=== PATIENT | female | born 2000 | race American Indian/Alaskan Native ===

== ENCOUNTER 2020-01-04 04:42 | Inpatient (IN) | payer MEDICAID ==
[2020-01-04] MEDS ORDERED: Lidocaine 1% 30 ML SDV ONE (05:05)
[2020-01-04] MEDS ORDERED: Tranexamic Acid 1,000 MG in Sodium Chloride 0.9% 100 ML IV PRN (05:45)
[2020-01-04] MEDS ORDERED: Measles, Mumps & Rubella Vaccine 0.5 ML SDV SUBCUT ONE (05:45)
[2020-01-04] MEDS ORDERED: Sodium Chloride 0.9% 10 ML Syringe FLUSH PRN (05:45)
[2020-01-04] MEDS ORDERED: Misoprostol 400 MCG (4 X 100 MCG TAB) RECTAL PRN (05:45)
[2020-01-04] MEDS ORDERED: Carboprost Tromethamine 250 MCG/1 ML Amp IM PRN (05:45)
[2020-01-04] MEDS ORDERED: Simethicone 80 MG Tab.Chew PO PRN (05:45)
[2020-01-04] MEDS ORDERED: Lidocaine 1% 30 ML SDV INJECT ONE (05:49)
[2020-01-04] MEDS ORDERED: Lactated Ringers 1,000 ML IV SCH (06:00)
[2020-01-04] MEDS ORDERED: Oxytocin/Normal Saline 30 UNIT/500 ML BAG IV SCH (06:00)
--- NOTE | 2020-01-04 07:38 | HP ---
CHIEF COMPLAINT: "Having a baby." HISTORY OF PRESENT ILLNESS: A 19-year-old 1, para 0, currently at 37- 1/7 weeks' gestation based on 1st trimester ultrasound at the [facility] was known to have a cervix that was already effacing at her 36+ weeks visit and reports that she felt some leakage of fluid around 4 o'clock in the morning, but was not sure that she was ruptured and was instructed to place on a dimitri-pad and call back if the pad continued to be moist. Instead, about 45 minutes later, she felt a small pop and had her 1st contraction, and had her boyfriend bring her to the hospital. She presented and ultimately was delivered by the nurse 9 minutes after feeling her 1st contraction (4 minutes after getting to the hospital). REVIEW OF SYMPTOMS: Prior to arrival; no chest pain, no shortness of breath. No preeclampsia symptoms. Had not been feeling any contractions. Did have a small amount of fluid leakage 45 minutes prior to presentation. No vaginal bleeding. movement had been good, and she denies any other specific concerns. OBSTETRICAL HISTORY: First with good care. Her blood type A positive, antibody screen negative. Rubella nonimmune. Syphilis serology nonreactive. Hepatitis B nonreactive. HIV nonreactive. Gonorrhea and chlamydia negative. TSH normal at 0.85. Hepatitis C nonreactive. Wet prep negative. One-hour glucose tolerance test of 96. Last hemoglobin 12.1, and platelets 198 on 11/02/2019, and group B Strep test was negative. Only medication during the was her vitamin. PAST MEDICAL HISTORY: Irregular periods, needle phobia, and prior urinary tract infection. SURGICAL HISTORY: None. FAMILY HISTORY: Mother is alive and well. Father is alive, but has substance use disorder. Maternal grandmother with lung cancer, diabetes, and heart disease. Maternal grandfather is unknown. Paternal grandmother has diabetes. Paternal grandfather has had diabetes and heart surgery x2. Negative family history for multiples, defects. No anesthesia problems, bleeding or clotting disorders, seizures. No cystic fibrosis. SOCIAL HISTORY: The patient lives with her boyfriend, Juan Pablo Hughes and his niece. They do have legal custody of his niece. She is working weekends at [employer] and he works at [employer]. He is reported as healthy, but his mother of severe asthma and his father had colon cancer, but is alive. This is their 1st child. Juan Pablo is a smoker. The patient herself is a former smoker. REVIEW OF SYSTEMS: Pertinent positives and negatives underneath the history of present illness. Otherwise, 10-system review is negative. PHYSICAL EXAMINATION: Note, patient is at the time of exam. She presented to the hospital and delivered precipitously with the nurse. There were no complications. I delivered the placenta and completed the perineal repair and then we were able to complete her actual admission exam. Vital Signs: Respiratory rate of 18, blood pressure 127/59, pulse of 91. She is afebrile with temp of 98.8. HEENT: Grossly unremarkable. Neck: Supple without adenopathy. Heart: Regular without murmur. Lungs: Clear to auscultation bilaterally. Abdomen: Soft, nontender. Fundus is now firm and below the umbilicus. monitoring strip for the 3 minutes that they were able to obtain prior to actual delivery, baseline heart rate of 130s. There was an acceleration noted and there was terminal decelerations. [place] was not applied and nurse palpated 3 contractions during this time. Vagina: Inspected and 2 anterior labial lacerations that did not need repair and are hemostatic. Posteriorly, there was a first-degree laceration repaired with 3-0 Vicryl in the usual fashion. Extremities: No edema, erythema, or tenderness noted. LABORATORY DATA: Hemoglobin 13.6, hematocrit 39.4, platelets 212. ASSESSMENT: 1. 1, now para 1-0-0-1. 2. Status post spontaneous vaginal delivery at 37 weeks and 1 day gestation. 3. Status post first-degree laceration repair. 4. Blood type A positive, rubella nonimmune, and group B Strep negative. 5. Former smoker. 6. Pap smear with ASCUS and positive HPV. 7. Plans on . PLAN: Anticipate normal cares and discharge home on day #2 due to early term gestation. The patient will also get her MMR booster. All of her questions have been answered. MODL /[id number] GALLO
--- NOTE | 2020-01-04 07:53 | DEL ---
DATE: 01/04/2020 PREPROCEDURE DIAGNOSES: 1. 37-1/7 weeks' intrauterine based on 1st trimester ultrasound at the [facility]. 2. 1 para 0. 3. Former smoker. 4. Blood type A positive, rubella nonimmune, group B Strep negative. 5. The patient does not feel her contractions. POSTPROCEDURE DIAGNOSES: 1. 37-1/7 weeks' intrauterine based on 1st trimester ultrasound at the [facility]. 2. 1 now para 1-0-0-1. 3. Status post spontaneous vaginal delivery, attended by nursing staff. 4. Status post first-degree laceration repair. 5. Former smoker. 6. Blood type A positive, rubella nonimmune, group B Strep negative. 7. The patient does not feel her contractions. BRIEF HISTORY: A 19-year-old female who reports that she had some leakage of fluid around 4 o'clock in the morning and put on a dimitri-pad to see if she was actually leaking or if there was some other fluid drainage. She noted her 1st contraction and hearing a pop at 4:45 a.m., immediately came to the hospital and delivered with the nurse in attendance at 4:54 a.m. Delivery details as outlined below. DETAILS OF PROCEDURE: The patient rapidly transferred to the bed and placed in dorsal lithotomy position. Nurse delivered a viable female infant in the OA position over intact perineum. Baby was dried, stimulated, bulb suctioned, and placed upon mother's abdomen. After delay of cord clamping of at least 2 minutes, the father cut the umbilical cord and then baby taken to the warmer for further evaluation. I then arrived in the room and cord blood sample was obtained. Placenta then delivered by gentle cord traction and concomitant uterine massage. Labia and vagina inspected and there were 2 anterior labial lacerations that were hemostatic and did not need repair. There was a first- degree posterior laceration, which was anesthetized with 1% lidocaine and repaired with 3-0 Vicryl running suture in the usual fashion with good cosmetic and hemostatic result. The patient tolerated all of her procedures quite well. COMPLICATIONS: None. The patient did deliver without physician in attendance. However, her precipitous delivery prohibited my being notified and arriving in time, but there were no complications with nurses performing the procedure. ESTIMATED BLOOD LOSS: Less than 200 mL. FINDINGS: Viable female infant, weighing 2950 g, 6 pounds 8 ounces, Apgars of 8 and 9, and first-degree laceration repair. DISPOSITION: Mother and baby to stay in the room to initiate . MODL /[id number]
[2020-01-04] MEDS: Ibuprofen 800 MG Tab PO PRN ×2 (09:30→15:53)
[2020-01-04] MEDS: Docusate Sodium 100 MG Cap PO PRN ×2 (09:31→21:20)
[2020-01-04] MEDS: Acetaminophen 325 MG Tab PO PRN ×3 (09:31→21:20)
[2020-01-04] MEDS: Prenatal Multivitamin with Calcium/Folic Acid/Iron Tab PO SCH (09:31)
[2020-01-04] MEDS: Ferrous Sulfate 325 MG Tab PO SCH (09:31)
[2020-01-04] MEDS: Benzocaine/Menthol 20%-0.5% Spray 56 GM Canister TOP PRN ×2 (17:38→21:19)
[2020-01-05] MEDS: Ibuprofen 800 MG Tab PO PRN ×3 (03:08→22:10)
[2020-01-05] MEDS: Acetaminophen 325 MG Tab PO PRN ×4 (03:08→22:10)
[2020-01-05] MEDS: Ferrous Sulfate 325 MG Tab PO SCH (08:52)
[2020-01-05] MEDS: Docusate Sodium 100 MG Cap PO PRN ×2 (08:52→22:10)
[2020-01-05] MEDS: Prenatal Multivitamin with Calcium/Folic Acid/Iron Tab PO SCH (08:52)
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
[2020-01-06] MEDS: Docusate Sodium 100 MG Cap PO PRN (08:43)
[2020-01-06] MEDS: Prenatal Multivitamin with Calcium/Folic Acid/Iron Tab PO SCH (08:43)
[2020-01-06] MEDS: Ferrous Sulfate 325 MG Tab PO SCH (08:44)
[2020-01-06] MEDS: Ibuprofen 800 MG Tab PO PRN (08:44)
== END 2020-01-06 11:30 | disposition home or self-care (01) | DRG 807 ==
LOC: DL.OBCHECK 04:42 → DL.OB 04:50 → OBSVTOIN 04:54 → DL.OB 04:54 → DL.MS 23:40
PROVIDERS: ADMIT Family Medicine; ATTEND Family Medicine
PROC: 10E0XZZ Delivery of Products of Conception, External Approach (ICD-10-PCS; principal; 2020-01-04)
DX: O70.0 First degree perineal laceration during delivery (principal); Z37.0 Single live birth; Z3A.37 37 weeks gestation of pregnancy; Z87.891 Personal history of nicotine dependence; Z11.59 Encounter for screening for other viral diseases
CPT/HCPCS: 36415; 59409; 85025; 90471; 90707; A9270-GY; J2001; J2590; J7120; U0002

== ENCOUNTER 2020-02-25 21:33 | Emergency (ER) | payer OTHER, MEDICAID ==
[2020-02-25 22:27] LABS: ANION GAP 14.3 mEq/L (7-13); CHLORIDE,CL 106 mmol/L (98-107); SODIUM,NA 142 mmol/L (136-145)
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
[2020-02-25] MEDS ORDERED: Acetaminophen 500 MG Tab PO ONE (23:23)
== END 2020-02-25 23:33 | disposition home or self-care (01) ==
LOC: DL.ED 21:33
DX: F07.81 Postconcussional syndrome (principal); S00.83XA Contusion of other part of head, initial encounter; V48.6XXA Car passenger injured in noncollision transport accident in traffic accident, initial encounter
CPT/HCPCS: 36415; 70450; 72125; 80053; 85025; 99284; A9270

== ENCOUNTER 2020-04-22 12:28 | Emergency (ER) | payer MEDICAID ==
--- NOTE | 2020-04-22 13:22 | EDM.PDOC ---
ED HPI GENERAL MEDICAL PROBLEM - General Chief Complaint: Lower Extremity Injury/Pain Stated Complaint: dislocated knee last night cant walk or move leg Time Seen by Provider: 04/22/20 13:13 Source of Information: Reports: Patient History Limitations: Reports: No Limitations - History of Present Illness INITIAL COMMENTS - FREE TEXT/NARRATIVE: Patient is here for left knee injury. She was jumping over the parking divider at [employer] last night when she landed with all her weight on her left leg. She felt her knee pop. She thought it was just jammed and had been walking on it since. She was walking home form the bar when she felt like her knee dislocated. She felt like it twisted in the joint then snapped back and popped. Her friends told her that they heard the pop as well. Never injured the knee before. She has been taking ibuprofen with minimal relief. She is having to move it gingerly. Occasional numbness down the lateral aspect of her lower leg with certain movements. Onset: Sudden Onset Date: 04/21/20 Location: Reports: Lower Extremity, Left Severity: Severe Improves with: Reports: Immobilization, Rest Worsens with: Reports: Movement - Related Data Allergies Allergy/AdvReac Type Severity Reaction Status Date / Time No Known Allergies Allergy Verified 01/04/20 05:32 Past Medical History - Past Health History Medical/Surgical History: Denies Medical/Surgical History Social & Family History - Family History Family Medical History: Noncontributory - Tobacco Use Tobacco Use Status *Q: Current Every Day Tobacco User Years of Tobacco use: 16 Packs/Tins Daily: 1 - Caffeine Use Caffeine Use: Reports: Coffee, Energy Drinks - Recreational Drug Use Recreational Drug Use: Yes Review of Systems - Review of Systems Review Of Systems: Comprehensive ROS is negative, except as noted in HPI. ED EXAM, GENERAL - Physical Exam Exam: See Below Exam Limited By: No Limitations General Appearance: Alert, WD/WN, No Apparent Distress Eye Exam: Bilateral Eye: Normal Inspection Ears: Normal External Exam Throat/Mouth: Normal Voice, No Airway Compromise Head: Atraumatic, Normocephalic Respiratory/Chest: No Respiratory Distress, Lungs Clear, Normal Breath Sounds, No Accessory Muscle Use Cardiovascular: Normal Peripheral Pulses, Regular Rate, Rhythm, No Edema, No Murmur GI/Abdominal: Soft, Non-Tender Extremities: Other (left knee with moderate swelling and slight bruising noted. No patellar apprehension. pain to palpation around medial and lateral joint lines as well as the posterior knee. Unable to test anterior or posterior drawer given swelling and patient guarding) Neurological: Alert, Oriented, Normal Cognition, No Motor/Sensory Deficits Psychiatric: Normal Affect, Normal Mood Skin Exam: Warm, Dry, Intact, No Rash Course - Vital Signs Last Recorded V/S: Last Vital Signs Temp 98.4 F 04/22/20 12:41 Pulse 94 04/22/20 12:41 Resp 18 04/22/20 12:41 BP 132/77 04/22/20 12:41 Pulse Ox 98 04/22/20 12:41 - Re-Assessments/Exams Free Text/Narrative Re-Assessment/Exam: left knee xray no fracture 04/22/20 14:09 Departure - Departure Time of Disposition: 14:09 Disposition: Home, Self-Care 01 Condition: Good Clinical Impression: Left knee sprain Qualifiers: Encounter type: initial encounter Involved ligament of knee: unspecified ligament Qualified Code(s): S83.92XA - Sprain of unspecified site of left knee, initial encounter - Discharge Information *PRESCRIPTION DRUG MONITORING PROGRAM REVIEWED*: Not Applicable *COPY OF PRESCRIPTION DRUG MONITORING REPORT IN PATIENT OLAMIDE: Not Applicable Instructions: Knee Sprain, Adult, [id number], Crutch Use, Adult, [id number] Referrals: Merline Tracy MD [Physician] - Forms: ED Department Discharge Additional Instructions: Knee immobilizer for comfort for 1-3 days until seen by PCP Crutches for comfort OTC Tylenol and ibuprofen for pain relief Ice therapy for pain and swelling Follow up with PCP in 1-3 days Sepsis Event Note (ED) - Evaluation Sepsis Screening Result: No Definite Risk - Focused Exam Vital Signs: Vital Signs Temp Pulse Resp BP Pulse Ox 04/22/20 12:41 98.4 F 94 18 132/77 98
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
== END 2020-04-22 14:36 | disposition home or self-care (01) ==
LOC: DL.ED 12:28
DX: S83.92XA Sprain of unspecified site of left knee, initial encounter (principal); F17.210 Nicotine dependence, cigarettes, uncomplicated; X58.XXXA Exposure to other specified factors, initial encounter; Y93.01 Activity, walking, marching and hiking
CPT/HCPCS: 73562-LT; 99282; 99283

== ENCOUNTER 2020-11-19 08:26 | Emergency (ER) | payer MEDICAID, OTHER ==
[2020-11-19] MEDS ORDERED: Ketorolac 30 MG/ML SDV IM ONE (08:50)
[2020-11-19] MEDS ORDERED: Orphenadrine 60 MG/2 ML Inj IM ONE (08:51)
--- NOTE | 2020-11-19 08:58 | EDM.PDOC ---
ED HPI GENERAL MEDICAL PROBLEM - General Chief Complaint: Back Pain or Injury Stated Complaint: [id number] PULLED SOMETHING IN BACK WC Time Seen by Provider: 11/19/20 08:45 Source of Information: Reports: Patient, RN, RN Notes Reviewed History Limitations: Reports: No Limitations - History of Present Illness INITIAL COMMENTS - FREE TEXT/NARRATIVE: Ariela is a 20 y/o female who presents to the ED via personal vehicle with complaints of low back pain. 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 She characterizes the pain as a sharp grab when she attempts to move or relax her back. She reports radiation of the pain from her midline, low back bilaterally across her low back with greater pain on her left than her right. She states she may have felt radiation of pain down her left leg, but she cannot be certain. She denies history or back injury or trauma to her back; she has never experienced pain similar to this in the past. She denies saddle paraesthesia, incontinence of bowel/bladder, dysuria, hematuria, constipation, or decrease in sensory to her distal extremities. She does attest to decrease in motor function to her bilateral lower legs due to pain and altered gait. Lower Back Pain Score (Numeric/FACES): 7 - Related Data Allergies Allergy/AdvReac Type Severity Reaction Status Date / Time No Known Allergies Allergy Verified 11/19/20 08:38 Home Meds: Home Meds . 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 Neurological History: Reports: None Psychiatric History: Reports: None Endocrine/Metabolic History: Reports: None Hematologic History: Reports: None Immunologic History: Reports: None Oncologic (Cancer) History: Reports: None Dermatologic History: Reports: None - Infectious Disease History Infectious Disease History: Reports: None - Past Surgical History Head Surgeries/Procedures: Reports: None Musculoskeletal Surgical History: Reports: Other (See Below) Other Musculoskeletal Surgeries/Procedures:: left knee ACL repair Social & Family History - Family History Family Medical History: No Pertinent Family History - Tobacco Use Tobacco Use Status *Q: Current Every Day Tobacco User Years of Tobacco use: 7 Packs/Tins Daily: 0.5 - Caffeine Use Caffeine Use: Reports: Energy Drinks - Recreational Drug Use Drug Use in Last 12 Months: Yes Recreational Drug Type: Reports: Marijuana/Hashish Recreational Drug Use Frequency: Weekly ED ROS GENERAL - Review of Systems Review Of Systems: Comprehensive ROS is negative, except as noted in HPI. ED EXAM,LOWER BACK PAIN/INJURY - Physical Exam Exam: See Below Exam Limited By: No Limitations General Appearance: Alert, Mild Distress (From low back pain) Throat/Mouth: Normal Inspection, Normal Oropharynx, Normal Voice, No Airway Compromise Respiratory/Chest: No Respiratory Distress, Lungs Clear, Normal Breath Sounds, No Accessory Muscle Use, Chest Non-Tender Cardiovascular: Normal Peripheral Pulses, Regular Rate, Rhythm, No Edema, No Gallop, No JVD, No Murmur, No Rub GI/Abdominal: Normal Bowel Sounds, Soft, Non-Tender, No Distention, No Mass, Pelvis Stable (Female) Exam: Deferred Rectal (Female) Exam: Deferred Back Exam: Decreased Range of Motion, Muscle Spasm. No: CVA Tenderness (L), CVA Tenderness (R), Paraspinal Tenderness, Vertebral Tenderness Extremities: Non-Tender, No Pedal Edema, Normal Capillary Refill, Limited Range of Motion (Due to pain in back with mobility). No: Leg Pain, Mottled, Pallor, Redness Neurological: Alert, Normal Mood/Affect, Normal Dorsiflexion, CN II-XII Intact, Normal Plantar Flexion, Normal Reflexes, No Motor/Sensory Deficits, Oriented x 3, Abnormal Gait (Due to low back pain) Psychiatric: Normal Affect, Normal Mood Skin Exam: Warm, Intact, Normal Color, No Rash. No: Ecchymosis, Erythema, Jaundice, Mottled, Pallor, Petechiae Course - Vital Signs Last Recorded V/S: Last Vital Signs Temp 98.1 F 11/19/20 08:39 Pulse 74 11/19/20 08:39 Resp 18 11/19/20 08:39 BP 120/69 11/19/20 08:39 Pulse Ox 98 11/19/20 08:39 - Orders/Labs/Meds Meds: Medications Discontinued Medications Generic Name Dose Route Start Last Admin Trade Name Freq PRN Reason Stop Dose Admin Ketorolac Tromethamine 60 mg 11/19/20 08:50 11/19/20 08:59 Ketorolac 30 Mg/Ml Sdv IM 11/19/20 08:51 60 mg ONETIME ONE Administration Orphenadrine Citrate 60 mg 11/19/20 08:51 11/19/20 09:00 Orphenadrine 60 Mg/2 Ml Inj IM 11/19/20 08:52 60 mg ONETIME ONE Administration - Re-Assessments/Exams Free Text/Narrative Re-Assessment/Exam: 11/19/20 Findings of examination reviewed with patient. Will treat acute muscle spasm due to muscle strain with Ketorolac and Norflex. Will treat OP with cyclobenzaprine and PT referral. Patient verbalized understanding and agreement with the plan of care. Departure - Departure Time of Disposition: 09:25 Disposition: Home, Self-Care 01 Condition: Good Clinical Impression: Muscle strain, Back muscle spasm Acute low back pain Qualifiers: Back pain laterality: bilateral Sciatica presence: without sciatica Qualified Code(s): M54.5 - Low back pain - Discharge Information *PRESCRIPTION DRUG MONITORING PROGRAM REVIEWED*: Not Applicable *COPY OF PRESCRIPTION DRUG MONITORING REPORT IN PATIENT OLAMIDE: Not Applicable Instructions: Muscle Cramps and Spasms, Muscle Strain, [id number] Referrals: Merline Tracy MD [Primary Care Provider] - Forms: ED Department Discharge Additional Instructions: Rx: cyclobenzaprine 1.) Follow up with physical therapy referral to relax and strengthen back muscles. You may set up an appointment via 2.) You may take ibuprofen (Advil/Motrin) 400mg every six hours, as pain persists. You may also take acetaminophen (Tylenol) 650mg every six hours, as pain persists. You may stagger these medications so you are receiving a dose every three hours. Do not take ibuprofen medication until tomorrow, as you received a high dose of this medication. 3.) Do not drive while taking cyclobenzaprine. 4.) You may alternate heat and ice to the affected area; 20 minutes every hour, as pain persists. Sepsis Event Note (ED) - Evaluation Sepsis Screening Result: No Definite Risk - Focused Exam Vital Signs: Vital Signs Temp Pulse Resp BP Pulse Ox 11/19/20 08:39 98.1 F 74 18 120/69 98
== END 2020-11-19 09:40 | disposition home or self-care (01) ==
LOC: DL.ED 08:26
DX: S39.012A Strain of muscle, fascia and tendon of lower back, initial encounter (principal); Z72.0 Tobacco use; X58.XXXA Exposure to other specified factors, initial encounter
CPT/HCPCS: 96372; 99283; J1885; J2360

== ENCOUNTER 2023-02-21 12:37 | Emergency (ER) | payer BC, MEDICAID | END 2023-02-21 13:13 | disposition home or self-care (01) | LOC: DL.ED 12:37 | DX: B34.9 Viral infection, unspecified (principal) | CPT/HCPCS: 99282; 99283 ==

== ENCOUNTER 2023-10-17 12:10 | Emergency (ER) | payer BC ==
[2023-10-17] MEDS: Take Home: Sulfamethoxazole/Trimethoprim 800-160 MG Tab, 6 Tab Pack PO ONE (13:22)
== END 2023-10-17 13:30 | disposition home or self-care (01) ==
LOC: DL.ED 12:10
DX: L01.00 Impetigo, unspecified (principal); F17.210 Nicotine dependence, cigarettes, uncomplicated
CPT/HCPCS: 99283; A9270

== ENCOUNTER 2024-12-01 05:04 | Inpatient (IN) | payer MEDICAID ==
[2024-12-01 05:57] LABS: HEMOGLOBIN 13.5 g/dL (12.0-16.0); MEAN CORPUSCULAR HGB CONC 33.8 g/dL (33.0-35.0); MEAN CORPUSCULAR VOLUME 91.7 fL (80-100); RED BLOOD CELL COUNT 4.36 10^6/uL (4.2-5.4); WHITE BLOOD CELL COUNT,WBC 7.2 10^3/uL (5.0-10.0)
[2024-12-01] MEDS: Penicillin G Potassium 5 MILLUNITS in Sodium Chloride 0.9% 100 ML IV ONE (06:01)
[2024-12-01] MEDS ORDERED: Ondansetron 4 MG/2 ML SDV IVPUSH PRN (06:10)
[2024-12-01] MEDS ORDERED: fentaNYL 100 MCG/2 ML SDV IVPUSH PRN (06:10)
[2024-12-01] MEDS ORDERED: Sodium Chloride 0.9% 10 ML Syringe FLUSH PRN ×2 (06:10→14:12)
[2024-12-01] MEDS ORDERED: Carboprost Tromethamine 250 MCG/1 ML Amp IM PRN ×2 (06:10→14:12)
[2024-12-01] MEDS ORDERED: Methylergonovine 0.2 MG/1 ML Amp IM PRN (06:10)
[2024-12-01] MEDS ORDERED: Tranexamic Acid 1,000 MG in Sodium Chloride 0.9% 100 ML IV PRN ×2 (06:10→14:12)
[2024-12-01] MEDS ORDERED: Lactated Ringers 1,000 ML IV SCH (06:15)
[2024-12-01] MEDS: Penicillin G Potassium 3 MILLUNITS in Sodium Chloride 0.9% 100 ML IV SCH (10:31)
[2024-12-01] MEDS: Lactated Ringers 1,000 ML IV ONE (13:30)
[2024-12-01] MEDS: Oxytocin/Lactated Ringers 30 UNIT/500 ML BAG IV SCH (14:02)
[2024-12-01] MEDS ORDERED: Simethicone 80 MG Tab.Chew PO PRN (14:12)
[2024-12-01] MEDS ORDERED: Misoprostol 100 MCG Tab RECTAL PRN (14:12)
[2024-12-01] MEDS ORDERED: Acetaminophen 325 MG Tab PO PRN (14:12)
[2024-12-01] MEDS ORDERED: Oxytocin 10 Units/1 ML SDV IM PRN (14:12)
[2024-12-01] MEDS: Ibuprofen 800 MG Tab PO SCH (15:03)
[2024-12-01] MEDS: Benzocaine/Menthol 20%-0.5% Spray 78 GM Cannister TOP PRN (15:04)
[2024-12-01] MEDS: Witch Hazel Medicated Pads 100/Jar TOP PRN (15:04)
[2024-12-01] MEDS: Docusate Sodium 100 MG Cap PO PRN (21:03)
[2024-12-02] MEDS: Prenatal Multivitamin with Calcium/Folic Acid/Iron Tab PO SCH (08:45)
[2024-12-02] MEDS: Acetaminophen 325 MG Tab PO PRN (09:10)
[2024-12-02] MEDS: Measles, Mumps & Rubella Vaccine 0.5 ML SDV SUBCUT ONE (09:12)
[2024-12-02] MEDS: Lidocaine 1% 30 ML SDV INJECT ONE (16:12)
== END 2024-12-03 11:48 | disposition home or self-care (01) | DRG 807 ==
LOC: DL.OBCHECK 05:04 → DL.OB 05:42 → OBSVTOIN 13:58 → DL.OB 13:58
PROVIDERS: ADMIT Family Medicine; ATTEND Family Medicine
PROC: 10907ZC Drainage of Amniotic Fluid, Therapeutic from Products of Conception, Via Natural or Artificial Opening (ICD-10-PCS; principal; 2024-12-01)
PROC: 3E0234Z Introduction of Serum, Toxoid and Vaccine into Muscle, Percutaneous Approach (ICD-10-PCS; principal; 2024-12-01)
PROC: 10E0XZZ Delivery of Products of Conception, External Approach (ICD-10-PCS; principal; 2024-12-01)
DX: O99.214 Obesity complicating childbirth (principal); Z37.0 Single live birth; Z3A.37 37 weeks gestation of pregnancy; Z23 Encounter for immunization; O99.824 Streptococcus B carrier state complicating childbirth; Z98.890 Other specified postprocedural states
CPT/HCPCS: 36415; 59409; 85027; 90471; 90707; A9270-GY; J2540; J2590; J7120

== ENCOUNTER 2025-05-20 16:30 | Emergency (ER) | payer MEDICAID ==
[2025-05-20] MEDS: Lidocaine 1% with EPINEPHrine 1:100,000 20 ML MDV INJECT ONE (17:04)
== END 2025-05-20 17:14 | disposition home or self-care (01) ==
LOC: DL.ED 16:30
DX: S01.01XA Laceration without foreign body of scalp, initial encounter (principal); F17.290 Nicotine dependence, other tobacco product, uncomplicated; Z79.899 Other long term (current) drug therapy; W10.8XXA Fall (on) (from) other stairs and steps, initial encounter; Y93.89 Activity, other specified
CPT/HCPCS: 12002; 99282; J2004; 99283